=== PATIENT | female | born 1990 | race American Indian/Alaskan Native ===

== ENCOUNTER 2018-07-02 10:19 | Outpatient (CLI) | payer SELFPAY ==
[2018-07-02 10:36] VITALS: BP 107/65
[2018-07-02] MEDS ORDERED: LACTATED RINGERS 500 ML IV ONE (11:51)
[2018-07-02 12:00] LABS: Bacteria,Urine 2+ /HPF (Negative); Bilirubin,Urine NEG (Negative); Blood,Urine SM (Negative); Color,Urine Yellow (Yellow); Mucus,Urine FEW /HPF; Protein,Urine <15 mg/dL mg/dL (Negative); Urobilinogen,Urine < 2.0 mg/dL (<2.0)
== END 2018-07-02 11:21 | disposition home or self-care (01) ==
LOC: TRG 10:19
PROVIDERS: ATTEND Obstetrics & Gynecology
DX: O47.02 False labor before 37 completed weeks of gestation, second trimester (principal); Z3A.24 24 weeks gestation of pregnancy; Z91.040 Latex allergy status
CPT/HCPCS: 59025; 81001